=== PATIENT | female | born 1945 | race Caucasian/White ===

== ENCOUNTER 2016-11-02 19:24 | Emergency (ER) | payer MEDICARE, OTHER ==
[2016-11-02] MEDS ORDERED: LIDOCAINE 2%-EPI 1:100,000 20 ML VIAL SUBMUCOSAL STA (19:38)
[2016-11-02] MEDS ORDERED: OXYMETAZOLINE 0.05% NASL SPRAY 15 ML NASAL STA (19:38)
--- NOTE | 2016-11-02 19:51 | ED ---
General Adult HPI - General Chief complaint: ENT Stated complaint: nose bleed Time Seen by Provider: 11/02/16 19:35 Source: patient, EMS Mode of arrival: EMS Limitations: no limitations - History of Present Illness Initial comments: Patient is a 71-year-old female with history of ascites, anemia, diabetes, cirrhosis of liver presenting with epistaxis. Patient states right nare bleeding on and off since this morning. Because of duration of bleeding and history of anemia daughter recommended patient come to the ER. Patient recently has nose clamp on without active bleeding. Patient denies aspirin, Coumadin, Xarelto use. Patient with baseline hemoglobin 8.0 from September 18 2016 - Related Data Home Medications Medication Instructions Recorded Confirmed Insulin Aspart [NovoLOG Flexpen] 25 units SQ AC-TID 03/23/15 11/02/16 Insulin Glargine [Lantus] 30 unit SQ BID 06/14/15 11/02/16 Furosemide [Lasix] 20 mg PO BID 10/16/15 11/02/16 Bisacodyl [Dulcolax] 10 mg RECTAL HS PRN 10/29/16 11/02/16 Bismuth Subsalicylate 30 ml PO Q4H PRN 10/29/16 11/02/16 [Pepto-Bismol] Lactulose 20 gm PO QID 10/29/16 11/02/16 Loratadine 10 mg PO DAILY 10/29/16 11/02/16 Metoclopramide [Reglan] 5 mg PO TID 10/29/16 11/02/16 Polyethylene Glycol 3350 [Miralax] 17 gm PO DAILY 10/29/16 11/02/16 Spironolactone 100 mg PO BID 10/29/16 11/02/16 guaiFENesin SYRUP 100MG/5ML 10 ml PO Q4H PRN 10/29/16 11/02/16 [Robitussin] traMADol HCL [Ultram] 50 mg PO BID PRN 10/29/16 11/02/16 Previous Rx's Medication Instructions Recorded Amoxicillin/Potassium Clav 1 tab PO BID #14 tab 11/02/16 [Augmentin 875-125 Tablet] Allergies Allergy/AdvReac Type Severity Reaction Status Date / Time No Known Allergies Allergy Verified 11/02/16 19:25 Review of Systems ROS Statement: Those systems with pertinent positive or pertinent negative responses have been documented in the HPI. Constitutional: No fever and no chills. HENT: + Epistaxis. No congestion, no rhinorrhea and no sore throat. Eyes: No discharge and no redness. Respiratory: No cough and no shortness of breath. Cardiovascular: No chest pain and no palpitations. Gastrointestinal: No nausea, no vomiting, no abdominal pain and no diarrhea. Genitourinary: No dysuria and no hematuria. Musculoskeletal: No back pain and no arthralgias. Skin: No pallor and no rash. Neurological: No dizziness and No headaches. ROS Other: All systems not noted in ROS Statement are negative. Past Medical History Past Medical History: Diabetes Mellitus, GERD/Reflux, GI Bleed, Hypertension, Liver Disease Additional Past Medical History / Comment(s): HAS BEEN HAVING LEFT ABD PAIN WITH BLOATING FOR SEVERAL MONTHS. Anemic, heart murmur, ?heart valve problem, bleeding ulcer, hiatal hernia. ASHD History of Any Multi-Drug Resistant Organisms: None Reported Past Surgical History: Section, Tonsillectomy Additional Past Surgical History / Comment(s): Bilateral cataracts removed, PARACENTESIS Past Anesthesia/Blood Transfusion Reactions: Postoperative Nausea & Vomiting ( PONV) Additional Past Anesthesia/Blood Transfusion Reaction / Comment(s): Pt has never received blood. Past Psychological History: No Psychological Hx Reported Additional Psychological History / Comment(s): Pt resides with her spouse. She is normally independent. She uses no assistive devices normally but lately due to this illness, her has been helping her get up and walk. She drives. She has no home care Smoking Status: Former smoker Past Alcohol Use History: None Reported Additional Past Alcohol Use History / Comment(s): Pt states she quit smoking about 35yrs ago. She started smoking at age 16yrs. Past Drug Use History: None Reported - Past Family History Father Family Medical History: Diabetes Mellitus Additional Family Medical History / Comment(s): Father at age 48yrs from diabetes. Mother Family Medical History: Diabetes Mellitus, Myocardial Infarction ([place]) Additional Family Medical History / Comment(s): Mother in her 70's. General Exam - General Exam Comments Initial Comments: Constitutional: Patient appears well-developed and well-nourished. No distress. Head: Normocephalic and atraumatic. Eyes: Conjunctivae and EOM are normal. Right eye exhibits no discharge. Left eye exhibits no discharge. No scleral icterus. Nose: Right near anterior Kiesselbach plexus erythematous without obvious bleeder. Throat: No posterior pharynx bleeding noted with nose clip. Neck: Normal range of motion. Neck supple. Cardiovascular: Normal rate and regular rhythm. No murmur heard. Pulmonary/Chest: Effort normal and breath sounds normal. No respiratory distress. No wheezes. Abdominal: Soft. Distention. No tenderness. There is no rebound and no guarding. Musculoskeletal: Normal range of motion. No edema or tenderness. Neurological: Patient alert and oriented to person, place, and time. Skin: Skin is warm and dry. Not diaphoretic. Nursing notes and vitals reviewed. Limitations: no limitations Course Vital Signs 11/02/16 11/02/16 11/02/16 19:25 21:28 22:28 Temperature 96.7 F L Pulse Rate 103 H 80 96 Respiratory 20 18 20 Rate Blood Pressure 133/60 126/58 115/56 O2 Sat by Pulse 100 99 100 Oximetry - Reevaluation(s) Reevaluation #1: 11/02/16 21:36 Right near cleaned out and examined. Lidocaine 2% with epi and Afrin on a cotton ball applied for 20 minutes. Reevaluation #2: 11/02/16 23:31 Patient was packed with 2 Merocel's with resolution of bleeding. Medical Decision Making - Medical Decision Making Patient is a 71-year-old female with cirrhosis presenting with right naris epistaxis. Patient has history of anemia with baseline around 8. Laboratory work shows a WBC 14.2, hemoglobin 8.1, platelets 250. INR 1.2. BMP was stable BUN 49 creatinine 1.69. Patient had right near epistaxis management with 2% lidocaine with epi and Afrin. On visual inspection after lidocaine and epi/Afrin, she had oozing from Kiesselbach's plexus which was cauterized. Bleeding continued despite attempts therefore patient was packed with 2 Merocel nasal dressings. Once packed bleeding stopped. Prior to discharge, patient was resting comfortably in bed. Requesting something for pain and to eat. Course of stay improved no further nosebleed. Denies pain. Discussed physical exam and diagnostic tests with patient. Questions answered and patient is agreeable to discharge with close follow up with Primary Care Physician/ENT. Instructed to return to Emergency Department if symptoms worsen. - Lab Data Result diagrams: 11/02/16 20:15 11/02/16 20:15 Lab Results 11/02/16 11/02/16 11/02/16 Range/Units 20:15 20:15 20:15 WBC 14.2 H (3.8-10.6) k/uL RBC 3.28 L (3.80-5.40) m/uL Hgb 8.1 L (11.4-16.0) gm/dL Hct 26.2 L (34.0-46.0) % MCV 80.0 (80.0-100.0) fL MCH 24.8 L (25.0-35.0) pg MCHC 31.0 (31.0-37.0) g/dL RDW 18.5 H (11.5-15.5) % Plt Count 250 (150-450) k/uL Neutrophils % (Manual) 54.5 % Band Neutrophils % 1.5 % Lymphocytes % (Manual) 33.5 % Monocytes % (Manual) 7.0 % Eosinophils % (Manual) 2.5 % Myelocytes % 1.0 % Neutrophils # (Manual) 8.0 H (1.3-7.7) k/uL Lymphocytes # (Manual) 4.8 (1.0-4.8) k/uL Monocytes # (Manual) 1.0 (0-1.0) k/uL Eosinophils # (Manual) 0.4 (0-0.7) k/uL Nucleated RBCs 0 (0-0) /100 WBC Manual Slide Review Performed Toxic Vacuolation Present Polychromasia Present Hypochromasia Moderate Anisocytosis Slight Microcytosis Slight PT 12.1 H (9.0-12.0) sec INR 1.2 (<1.1) APTT 24.4 (22.0-30.0) sec Sodium 134 L (137-145) mmol/L Potassium 5.1 (3.5-5.1) mmol/L Chloride 101 (98-107) mmol/L Carbon Dioxide 22 (22-30) mmol/L Anion Gap 11 mmol/L BUN 49 H (7-17) mg/dL Creatinine 1.69 H (0.52-1.04) mg/dL Est GFR (MDRD) Af Amer 36 (>60 ml/min/1.73 sqM) Est GFR (MDRD) Non-Af 30 (>60 ml/min/1.73 sqM) Glucose 103 H (74-99) mg/dL Calcium 8.6 (8.4-10.2) mg/dL Disposition Clinical Impression: Right-sided epistaxis Disposition: HOME SELF-CARE Condition: Good Instructions: Nosebleed (ED) Prescriptions: Amoxicillin/Potassium Clav [Augmentin 875-125 Tablet] 1 tab PO BID #14 tab Referrals: Hunter Johns MD [Primary Care Provider] - 1-2 days Antonio Vega MD [STAFF PHYSICIAN] - 1-2 days
[2016-11-02 20:43] LABS: INR 1.2 (<1.1); Partial Thromboplastin Time 24.4 sec (22.0-30.0); Prothrombin Time 12.1 sec (9.0-12.0)
[2016-11-02 20:44] LABS: Anisocytosis Slight; Aty Lym Flag Slight; CH 24.9; CHCM 31.2; HCT 26.2 % (34.0-46.0); HDW 2.87; HGB 8.1 gm/dL (11.4-16.0); Hypochromasia Moderate; MCH 24.8 pg (25.0-35.0); Mean Platelet Volume 8.2; Microcytosis Slight; RBC 3.28 m/uL (3.80-5.40); RDW 18.5 % (11.5-15.5); WBC 14.2 k/uL (3.8-10.6); WBC (Perox) 14.25
[2016-11-02 20:51] LABS: Calcium 8.6 mg/dL (8.4-10.2); Potassium 5.1 mmol/L (3.5-5.1)
[2016-11-02 21:11] LABS: Add Differential Manual Differential
[2016-11-02 21:16] LABS: Band Neutrophils % 1.5 %; Nucleated Red Blood Cells 0 /100 WBC (0-0); Total Cells Counted 200
[2016-11-02 21:17] LABS: Manual Review Performed; Polychromasia Present; Toxic Vacuolation Present
[2016-11-02] MEDS ORDERED: MORPHINE SULFATE 2 MG/ML SYRINGE IVP ONE (23:30)
[2016-11-02 23:50] VITALS: BP 129/60; PULSE 98; RESP 18; TEMP 98.2
== END 2016-11-03 00:42 | disposition home or self-care (01) ==
LOC: EC 19:24
DX: R04.0 Epistaxis (principal); E11.9 Type 2 diabetes mellitus without complications; I10 Essential (primary) hypertension; K74.60 Unspecified cirrhosis of liver; I25.10 Atherosclerotic heart disease of native coronary artery without angina pectoris; Z87.891 Personal history of nicotine dependence; Z83.3 Family history of diabetes mellitus; Z82.49 Family history of ischemic heart disease and other diseases of the circulatory system; Z79.4 Long term (current) use of insulin; Z79.899 Other long term (current) drug therapy; Z86.2 Personal history of diseases of the blood and blood-forming organs and certain disorders involving the immune mechanism
CPT/HCPCS: 30901 ×2; 96374 ×2; 99284 ×2; 36415; 80048; 85025; 85610; 85730; J2270

== ENCOUNTER 2016-11-11 08:54 | Day surgery (SDC) | payer MEDICARE, OTHER ==
[2016-11-11 09:30] VITALS: TEMP 97.6
[2016-11-11] MEDS ORDERED: ALPRAZolam 0.25 MG TAB PO STA (09:35)
[2016-11-11 10:05] LABS: Mean Platelet Volume 7.7
[2016-11-11 10:07] LABS: INR 1.2 (<1.1); Prothrombin Time 11.7 sec (9.0-12.0)
[2016-11-11] MEDS: ALBUMIN HUMAN 25% 50 ML in EMPTY BAG 1 BAG IVPB SCH ×2 (11:06→11:21)
[2016-11-11 12:28] VITALS: BP 109/59; PULSE 97; RESP 14
--- NOTE | 2016-11-11 16:02 | US ---
EXAMINATION TYPE: US paracentesis abd w/image DATE OF EXAM: 11/11/2016 1:50 PM COMPARISON: NONE HISTORY: Ascites. PROCEDURE: Maximal barrier technique was utilized. The skin overlying a suitable pocket of fluid was localized with ultrasound and the overlying skin was prepped and draped. Ultrasound was utilized with sterile technique. Lidocaine was used for local anesthesia and a skin howard made with a scalpel. Catheter was advanced under direct ultrasound guidance into a suitable pocket of fluid and approximately 6.6 liter s of serous fluid were removed. Catheter was withdrawn and hemostasis achieved. There is no immedia te complication; the patient is discharged in stable condition. IMPRESSION: STATUS POST ULTRASOUND GUIDED PARACENTESIS FOR PALLIATION OF ASCITES. THIS PROCEDURE WA S PERFORMED BY THE UNDERSIGNED.
== END 2016-11-11 12:43 ==
LOC: RADPROMAIN 08:54
PROVIDERS: ATTEND Internal Medicine
DX: R18.8 Other ascites (principal)
CPT/HCPCS: 82565; 85049; 85610; 96365; 49083; P9047

== ENCOUNTER 2017-04-30 07:47 | Day surgery (SDC) | payer MEDICARE, OTHER ==
[2017-04-30 08:48] VITALS: RESP 14; TEMP 98
[2017-04-30 08:53] LABS: Mean Platelet Volume 7.2
[2017-04-30 09:06] LABS: INR 1.4 (<1.2); Prothrombin Time 13.9 sec (9.0-12.0)
[2017-04-30 10:21] VITALS: BP 102/58; PULSE 101
--- NOTE | 2017-04-30 15:19 | US ---
Therapeutic paracentesis. DATE OF EXAM: 04/30/2017 CLINICAL HISTORY: Ascites The procedure was discussed with the patient. The risks, complications, benefits, and alternatives we re discussed and any questions were answered. Informed consent was obtained. The patient was placed s upine on the ultrasound table and prepped and draped in the usual sterile fashion. All elements of maximal barrier technique were utilized. Under ultrasound guidance, access into the left lower quadrant was obtained, via the paracentesis catheter system and direct ultrasound guidance . Approximately 6.5 liters of straw-colored fluid was removed. The patient was stable throughout the pr ocedure and remained stable upon discharge from Department of Radiology. IMPRESSION: Successful therapeutic paracentesis under ultrasound guidance.
== END 2017-04-30 10:43 ==
LOC: RADPROMAIN 07:47
PROVIDERS: ATTEND Internal Medicine
DX: R18.8 Other ascites (principal); K74.60 Unspecified cirrhosis of liver
CPT/HCPCS: 49083; 85049; 85610